=== PATIENT | female | born 1950 | race Caucasian/White ===

== ENCOUNTER 2016-11-11 10:35 | Outpatient (RCR) | payer OTHER ==
--- OUTSIDE RECORDS SUMMARY | 2016-08-25 10:07 | XMS REPORT | Continuity of Care Document ---
Author Author [facility] Organization [facility] Address Unknown Phone Unavailable Care Team Providers Care Chief Cruiser Name Role Phone Misti Donovan PCP [phone] Source Comments Some departments are not documenting in the electronic medical record. If you do not see the information that you expected, contact Release of Information in the Health Information Management department at [phone] for further assistance in locating additional records.[facility] Active Allergies and Adverse Reactions Allergen Noted Date Severity Reactions Comments Codeine 10/08/2015 Medium EDEMA Current Medications Prescription Sig. Disp. Refills Start End Date Status Date budesonide/formoterol Inhale 2 Puffs by mouth Active (SYMBICORT) 80-4.5 twice daily. mcg/actuation HFAA inhalation albuterol (VENTOLIN HFA, Inhale 2 Puffs by mouth Active PROAIR HFA) 90 every 6 hours as needed mcg/actuation inhaler for Wheezing. traMADol (ULTRAM) 50 mg Take 50 mg by mouth every Active tablet 4 hours as needed for Pain. Indications: PAIN LORazepam (ATIVAN) 1 mg Take 1 Tab by mouth every 6 Tab 0 10/08/19 Active tablet 4 hours as needed 16 (Claustrophobia). Take 1 tab PO PRN claustrophobia prior to CT simulation and treatment with radiation therapy (SBRT). nicotine (NICODERM CQ Apply 1 Patch to top of 28 Patch 0 10/08/19 Active STEP 2) 14 mg/day patch skin as directed daily. 16 Indications: SMOKING CESSATION predniSONE (DELTASONE) 20 Take 1 tab PO for 14 21 Tab 0 11/02/20 / Discontin mg tablet days, then half tab for 16 16 ued one week, then off. Active Problems Problem Noted Date Malignant neoplasm of upper lobe of right lung (HCC) COPD (chronic obstructive pulmonary disease) (HCC) Most Recent Encounters Date Type Specialty Providers Description 07/29/2016 Office Visit Radiation Therapy Bari Caceres MD Malignant neoplasm of upper lobe of right lung (HCC) (Primary Dx) 07/29/2016 Hospital Radiology Bari Caceres MD Encounter Social History Tobacco Use Types Packs/Day Years Used Date Current Every Day Smoker Cigarettes 1 40 Smokeless Tobacco: Never Used Alcohol Use Drinks/Week oz/Week Comments Yes 3-5 times per week Last Filed Vital Signs Vital Sign Reading Time Taken Blood Pressure 126/82 07/29/2016 11:11 AM ENTRY SPECIALIST Pulse 77 07/29/2016 11:11 AM ENTRY SPECIALIST Temperature 37.1 C (98.8 F) 07/29/2016 11:11 AM ENTRY SPECIALIST Respiratory Rate - - Height 1.651 m (5' 5") 07/29/2016 11:11 AM ENTRY SPECIALIST Weight 70.126 kg (154 lb 9.6 oz) 07/29/2016 11:11 AM ENTRY SPECIALIST Body Mass Index 25.73 07/29/2016 11:11 AM ENTRY SPECIALIST Oxygen Saturation 100% 07/29/2016 11:11 AM ENTRY SPECIALIST Plan of Care Date Type Specialty Providers Description 01/31/2017 Appointment Radiology Bari Caceres MD [address] [facility] [address] [place] [address] [phone] (Fax) 01/31/2017 Appointment Radiation Therapy Bari Caceres MD [address] [facility] [address] [place] [address] [phone] (Fax) Health Maintenance Due Date Last Done Comments Hepatitis C Screening 1950 Physical (Comprehensive) 1958 Exam Pertussis Vaccine 1962 Tetanus Vaccine 1968 Cervical Cancer Screening 1972 Breast Cancer Screening 1991 Colorectal Cancer 2001 Screening Shingles Vaccine 2011 Influenza Vaccine 04/08/2016 Results from Last [address] CHEST WO CONTRAST (07/29/2016 10:24 AM) Impressions 1. Further slight decrease in size of the right upper lobe pulmonary nodule with slight increase in surrounding post radiation changes. The additional tiny right upper lobe nodule remains unchanged. CT surveillance is suggested. 2. No thoracic lymphadenopathy. 3. Moderate emphysema. 4. At least mild coronary artery calcification. Finalized by Darrell Britt M.D. on 07/29/2016 10:34 AM. Dictated by Darrell Britt M.D. on 07/29/2016 10:[address] Chest Clinical Indication: Lung cancer. Restaging. Technique: Multiple contiguous axial CT images were obtained through the chest without IV contrast.Post processing coronal and sagittal reconstruction images were made from the axial images. Comparison: February 05, [address] Findings: Axilla, Mediastinum and Teresa: No lymphadenopathy. Heart and Great Vessels: The heart size is normal. There is no pericardial effusion. There is at least mild coronary artery calcification. Lungs and Pleura: Moderate emphysema is again noted with focal scarring and atelectasis again seen in the medial right upper lobe. The previously measured irregular right upper lobe nodule has shown further decrease in size, now measuring 0.6 cm on series 3, image 22 compared to a previous measurement of 0.8 cm. There is increasing surrounding groundglass and interstitial opacity, likely representing post radiation changes. A tiny nodule in the right upper lobe is unchanged measuring 0.3 cm on image 16. No new or enlarging pulmonary nodules are identified. No pleural effusions. Chest Wall and Osseous Structures: No destructive osseous lesions. Visualized Upper Abdomen: Surgical clips are again seen in the gallbladder fossa. A small probable exophytic hemorrhagic cyst is seen in the right kidney on image 67. This is incompletely characterized by noncontrast chest CT. Procedure Note Interface, Radiant Results - [facility] Jul 29, 2016 10:[address] Chest Clinical Indication: Lung cancer. Restaging. Technique: Multiple contiguous axial CT images were obtained through the chest without IV contrast. Post processing coronal and sagittal reconstruction images were made from the axial images. Comparison: February 05, [address] Findings: Axilla, Mediastinum and Teresa: No lymphadenopathy. Heart and Great Vessels: The heart size is normal. There is no pericardial effusion. There is at least mild coronary artery calcification. Lungs and Pleura: Moderate emphysema is again noted with focal scarring and atelectasis again seen in the medial right upper lobe. The previously measured irregular right upper lobe nodule has shown further decrease in size, now measuring 0.6 cm on series 3, image 22 compared to a previous measurement of 0.8 cm. There is increasing surrounding groundglass and interstitial opacity, likely representing post radiation changes. A tiny nodule in the right upper lobe is unchanged measuring 0.3 cm on image 16. No new or enlarging pulmonary nodules are identified. No pleural effusions. Chest Wall and Osseous Structures: No destructive osseous lesions. Visualized Upper Abdomen: Surgical clips are again seen in the gallbladder fossa. A small probable exophytic hemorrhagic cyst is seen in the right kidney on image 67. This is incompletely characterized by noncontrast chest CT. IMPRESSION 1. Further slight decrease in size of the right upper lobe pulmonary nodule with slight increase in surrounding post radiation changes. The additional tiny right upper lobe nodule remains unchanged. CT surveillance is suggested. 2. No thoracic lymphadenopathy. 3. Moderate emphysema. 4. At least mild coronary artery calcification. Finalized by Darrell Britt M.D. on 07/29/2016 10:34 AM. Dictated by Darrell Britt M.D. on 07/29/2016 10:27 AM.
[2016-08-25 10:42] LABS: BASOPHILS % (AUTO) 1 % (0-10); EOSINOPHILS # (AUTO) 0.2 10^3/uL (0.0-0.3); EOSINOPHILS % (AUTO) 3 % (0-10); LYMPHOCYTES # (AUTO) 1.3 X 10^3 (1.0-4.0); LYMPHOCYTES % (AUTO) 20 % (12-44); MEAN CORPUSCULAR HEMOGLOBIN 34 PG (25-34); MEAN CORPUSCULAR HGB CONC 34 G/DL (32-36); MEAN CORPUSCULAR VOLUME 99 FL (80-99); MEAN PLATELET VOLUME 10.4 FL (7.4-10.4); MONOCYTES # (AUTO) 0.5 X 10^3 (0.0-1.0); MONOCYTES % (AUTO) 8 % (0-12); NEUTROPHILS # (AUTO) 4.4 X 10^3 (1.8-7.8); NEUTROPHILS % (AUTO) 68 % (42-75); PLATELET COUNT 160 10^3/uL (130-400); RED BLOOD COUNT 4.51 10^6/uL (4.35-5.85); RED CELL DISTRIBUTION WIDTH 13.5 % (10.0-14.5); WHITE BLOOD COUNT 6.4 10^3/uL (4.3-11.0)
[2016-08-25 11:25] LABS: ALANINE AMINOTRANSFERASE 16 U/L (0-55); ANION GAP 10 MMOL/L (5-14); ASPARTATE AMINO TRANSFERASE 19 U/L (5-34); BILIRUBIN,TOTAL 0.4 MG/DL (0.1-1.0); BLOOD UREA NITROGEN 14 MG/DL (7-18); BUN/CREATININE RATIO 20; CALCIUM 9.4 MG/DL (8.5-10.1); CARBON DIOXIDE 26 MMOL/L (21-32); CHLORIDE 104 MMOL/L (98-107); CREATININE SERUM 0.71 MG/DL (0.60-1.30); GFR ESTIMATED > 60; GLUCOSE 88 MG/DL (70-105); POTASSIUM 4.5 MMOL/L (3.6-5.0); SODIUM 140 MMOL/L (135-145); TOTAL PROTEIN 6.4 G/DL (6.4-8.2)
[2016-11-11 11:09] LABS: BASOPHILS % (AUTO) 1 % (0-10); EOSINOPHILS # (AUTO) 0.1 10^3/uL (0.0-0.3); EOSINOPHILS % (AUTO) 2 % (0-10); LYMPHOCYTES # (AUTO) 1.2 X 10^3 (1.0-4.0); LYMPHOCYTES % (AUTO) 18 % (12-44); MEAN CORPUSCULAR HEMOGLOBIN 33 PG (25-34); MEAN CORPUSCULAR HGB CONC 34 G/DL (32-36); MEAN CORPUSCULAR VOLUME 98 FL (80-99); MONOCYTES # (AUTO) 0.4 X 10^3 (0.0-1.0); MONOCYTES % (AUTO) 6 % (0-12); NEUTROPHILS # (AUTO) 4.9 X 10^3 (1.8-7.8); NEUTROPHILS % (AUTO) 74 % (42-75); PLATELET COUNT 170 10^3/uL (130-400); RED BLOOD COUNT 4.43 10^6/uL (4.35-5.85); WHITE BLOOD COUNT 6.6 10^3/uL (4.3-11.0)
[2016-11-11 11:58] LABS: ALANINE AMINOTRANSFERASE 14 U/L (0-55); ALBUMIN 3.9 G/DL (3.2-4.5); ANION GAP 7 MMOL/L (5-14); ASPARTATE AMINO TRANSFERASE 18 U/L (5-34); BILIRUBIN,TOTAL 0.5 MG/DL (0.1-1.0); BLOOD UREA NITROGEN 12 MG/DL (7-18); BUN/CREATININE RATIO 16; CALCIUM 9.3 MG/DL (8.5-10.1); CARBON DIOXIDE 28 MMOL/L (21-32); CHLORIDE 105 MMOL/L (98-107); CREATININE SERUM 0.73 MG/DL (0.60-1.30); GFR ESTIMATED > 60; GLUCOSE 108 MG/DL (70-105); POTASSIUM 4.1 MMOL/L (3.6-5.0); SODIUM 140 MMOL/L (135-145); TOTAL PROTEIN 6.2 G/DL (6.4-8.2)
== END 2016-11-23 | disposition home or self-care (01) ==
LOC: ONC 10:35
PROVIDERS: ATTEND Internal Medicine Hematology & Oncology
DX: C34.91 Malignant neoplasm of unspecified part of right bronchus or lung (principal); J44.9 Chronic obstructive pulmonary disease, unspecified; F17.210 Nicotine dependence, cigarettes, uncomplicated; K59.00 Constipation, unspecified
CPT/HCPCS: 36415; 80053; 85025; 99213

== ENCOUNTER → 2017-03-21 | Outpatient (CLI) | payer OTHER ==
--- NOTE | 2017-03-21 11:58 | Diagnostic Imaging Report ---
INDICATION: Hypoxemia. EXAMINATION: PA and lateral chest. FINDINGS: Heart size and pulmonary vascularity are normal. Lungs are clear. There are no effusions or pneumothoraces. IMPRESSION: Negative chest. Dictated by: Dictated on workstation # [id number]
== END ==
LOC: RAD 11:30
PROVIDERS: ATTEND Nurse Practitioner Family
DX: R09.02 Hypoxemia (principal); F17.210 Nicotine dependence, cigarettes, uncomplicated
CPT/HCPCS: 71020

== ENCOUNTER → 2019-06-27 | Outpatient (CLI) | payer MEDICARE, OTHER ==
[~2019-06-27] MED LIST: RT-ALBUTEROL SULF 2.5 MG/3 ML PRE-MIX VIAL INH ONE
== END ==
LOC: RT 08:52
PROVIDERS: ATTEND Nurse Practitioner Family
DX: C34.11 Malignant neoplasm of upper lobe, right bronchus or lung (principal); J44.9 Chronic obstructive pulmonary disease, unspecified; F17.210 Nicotine dependence, cigarettes, uncomplicated
CPT/HCPCS: 94060; 94726; 94729